=== PATIENT | male | born 2000 | race Caucasian/White ===

== ENCOUNTER → 2024-01-12 | Outpatient (CLI) | payer OTHER ==
--- NOTE | 2024-01-13 11:35 | CA ---
Transthoracic Echo Report Name: Vivek eLa Age: 24 Gender: M : 2000 Exam Date: 01/12/2024 17:59 Exam Location: [facility] Ht (in): 66 Wt (lb): 195 Ordering Physician: Jaret Storm MD Attending/Referring Phys: Jaret Storm MD Inventory Technician Tracey Hardy, [facility] Procedure CPT: Indications: R06.00 DYSPENEA, UNSPECIFIED Cardiac Hx: Technical Quality: Fair Contrast 1: Total Dose (mL): Contrast 2: Total Dose (mL): MEASUREMENTS (Male / Female) Normal Values 2D ECHO LV Diastolic Diameter PLAX 4.4 cm 4.2 - 5.9 / 3.9 - 5.3 cm LV Systolic Diameter PLAX 3.0 cm IVS Diastolic Thickness 1.1 cm 0.6 - 1.0 / 0.6 - 0.9 cm LVPW Diastolic Thickness 1.3 cm 0.6 - 1.0 / 0.6 - 0.9 cm LV Relative Wall Thickness 0.5 RV Internal Dim ED PLAX 3.3 cm LA Systolic Diameter LX 3.1 cm 3.0 - 4.0 / 2.7 - 3.8 cm LV Diastolic Volume MOD 4C 98.4 cm??? LV Systolic Volume MOD 4C 54.5 cm??? LV Ejection Fraction MOD 4C 44.6 % LV Diastolic Length 4C 7.8 cm LV Systolic Length 4C 6.6 cm LV Diastolic Volume MOD 2C 92.4 cm??? LV Systolic Volume MOD 2C 49.2 cm??? LV Ejection Fraction MOD 2C 46.7 % LV Diastolic Length 2C 8.1 cm LV Systolic Length 2C 7.1 cm LA Volume 36.9 cm??? 18 - 58 / 22 - 52 cm??? LA Volume Index 17.9 cm???/m??? 16 - 28 cm???/m??? M-MODE Aortic Root Diameter MM 3.9 cm MV E Point Septal Separation 0.9 cm DOPPLER AV Peak Velocity 76.6 cm/s AV Peak Gradient 2.3 mmHg MV Area PHT 2.8 cm??? Mitral E Point Velocity 52.9 cm/s Mitral A Point Velocity 45.9 cm/s Mitral E to A Ratio 1.2 MV Deceleration Time 271.8 ms FINDINGS Left Ventricle Left ventricular ejection fraction is estimated at 45-50 %. Left ventricular cavity size normal. Mildly increased septal wall thickness. Right Ventricle Mild right ventricular dilatation. Unable to estimate the right ventricular systolic pressure. Right Atrium Right atrium not well visualized. Left Atrium Normal left atrial size. Mitral Valve Structurally normal mitral valve. No mitral stenosis, regurgitation or prolapse. Aortic Valve Trileaflet aortic valve. No aortic valve stenosis or regurgitation. Tricuspid Valve Structurally normal tricuspid valve. No tricuspid stenosis, regurgitation or prolapse. Pulmonic Valve Structurally normal pulmonic valve. Mild pulmonic regurgitation. Pericardium No pericardial effusion. Aorta Mild aortic dilatation at the level of the sinuses of valsalva 39 mm CONCLUSIONS Mild LV dysfunction Previewed by: Dr. Cruz Sena MD (Electronically Signed) Final Date: 13 January 2024 11:35
== END | disposition home or self-care (01) ==
LOC: RADECHMAIN 17:42
PROVIDERS: ATTEND Family Medicine
DX: I51.89 Other ill-defined heart diseases (principal); R06.00 Dyspnea, unspecified
CPT/HCPCS: 93306

== ENCOUNTER → 2024-01-25 | Outpatient (CLI) | payer OTHER ==
--- NOTE | 2024-01-25 10:04 | US ---
EXAMINATION TYPE: US liver DATE OF EXAM: 01/25/2024 COMPARISON: NONE CLINICAL INDICATION: Male, 24 years old with history of R94.5 ABNORMAL RESULTS OF LIVER; Abnormal res ults of liver. TECHNIQUE: Multiple sonographic images of the right upper quadrant are obtained. FINDINGS: EXAM MEASUREMENTS: Liver Length: 16.7 cm Gallbladder Wall: 0.23 cm CBD: Obscured Right Kidney: 11.5 x 5.4 x 5.0 cm AGING ROOM HAND NOTES: *Exam is limited due to gas. Pancreas: Very limited, tail was not seen. Liver: Very coarse and heterogeneous in echotexture. Gallbladder: Appears anechoic. Evidence for sonographic Piedra's sign: No CBD: Obscured Right Kidney: Limited visibility of lower pole due to gas. IMPRESSION: Hepatocellular disease commonly relating to hepatic steatosis.. No suspicious observations.
== END | disposition home or self-care (01) ==
LOC: RADUSWWP 08:31
PROVIDERS: ATTEND Family Medicine
DX: K76.0 Fatty (change of) liver, not elsewhere classified (principal); R94.5 Abnormal results of liver function studies; K76.89 Other specified diseases of liver
CPT/HCPCS: 76705